=== PATIENT | male | born 2000 | race Two or more races ===

== ENCOUNTER → 2022-05-19 | Emergency (ER) | payer OTHER ==
[~2022-05-19] VITALS: Ht 165.1 cm; Wt 59.9 kg
[~2022-05-19] MED LIST: IV NS 0.9% 1,000 ML BAG IV ONE; IV NS 0.9% 1,000 ML IV ONE
--- NOTE | 2022-05-19 14:10 | NUR ---
PT ABLE TO BE AWAKENED, VERBALLY RESPONSIVE; PER PT, HE DOES NOT WANT TO HURT HIMSELF NOR END HIS LIFE.
--- NOTE | 2022-05-19 14:16 | NUR ---
PHLEB AT BEDSIDE FOR BLOOD DRAW
--- NOTE | 2022-05-19 14:17 | NUR ---
PT UNABLE TO PROVIDE URINE AT THIS TIME; URINAL PLACED AT BEDSIDE
--- NOTE | 2022-05-19 14:24 | NUR ---
IV PLACED AT BEDSIDE. Oswaldo HARDIN #[id number]. Addendum: 05/19/22 at 1431 by SUZETTE IV FLUIDS RUNNING
[2022-05-19 14:38] LABS: BASOPHILS % (AUTO) 0.4 % (0.0-2.0); EOSINOPHILS % (AUTO) 0.4 % (0.0-6.0); HEMATOCRIT 47 % (39-51); HEMOGLOBIN 15.5 g/dL (13.5-17.5); LYMPHOCYTES % (AUTO) 23.3 % (20.0-44.0); MEAN CORPUSCULAR HGB CONC 33 g/dl (31.0-36.0); MEAN CORPUSCULAR VOLUME 86 fL (80-96); MONOCYTES # (AUTO) 0.5 K/uL (0.1-1.30); MONOCYTES % (AUTO) 5.7 % (2.0-12.0); NEUTROPHILS % (AUTO) 70.2 % (43.0-81.0); PLATELET COUNT (AUTO) 364 K/uL (150-450); RED BLOOD CELL COUNT(AUTO) 5.48 MIL/uL (4.5-6.0); WHITE BLOOD COUNT (AUTO) 8.5 K/uL (4.3-11.0)
[2022-05-19 14:53] LABS: CALCIUM, SERUM 9.5 mg/dL (8.5-10.1); CARBON DIOXIDE 27 mmol/L (21-32); CHLORIDE 101 mmol/L (98-107); GLUCOSE 109 mg/dL (74-106); POTASSIUM 3.3 mmol/L (3.5-5.1); SODIUM SERUM 138 mmol/L (136-145); UREA NITROGEN, BLOOD 8 mg/dL (7-18)
[2022-05-19 14:58] LABS: ALANINE AMINOTRANSFERASE 41 U/L (12-78); ALBUMIN 4.7 g/dL (3.4-5.0); ALCOHOL, BLOOD < 3 mg/dL (0-0); ALKALINE PHOSPHATASE 114 U/L (46-116); ASPARTATE AMINOTRANSFERASE 23 U/L (15-37); BILIRUBIN,DIRECT 0.1 mg/dL (0.0-0.2); TOTAL PROTEIN, SERUM 8.4 g/dL (6.4-8.2)
[2022-05-19 15:11] LABS: ACETAMINOPHEN < 10 ug/ml (10-30)
--- NOTE | 2022-05-19 15:20 | NUR ---
URINE COLLECTED AND SENT TO LAB
--- NOTE | 2022-05-19 16:12 | NUR ---
LAB CONFIRMED THAT URINE SAMPLE HAS BEEN RECEIVED AND WILL BE PROCESSED ALREADY
[2022-05-19 16:15] LABS: BILIRUBIN,TOTAL 0.5 mg/dL (0.2-1.0)
[2022-05-19 16:16] LABS: BILIRUBIN,URINE NEGATIVE (NEGATIVE); COLOR,URINE YELLOW (YELLOW); LEUKOCYTE ESTERASE ,URINE NEGATIVE (NEGATIVE); NITRITE, URINE NEGATIVE (NEGATIVE); PROTEIN,URINE TRACE mg/dl (NEGATIVE); UGLUCOSE NEGATIVE (NEGATIVE); UROBILINOGEN,URINE 0.2 EU/dL (0.2)
[2022-05-19 16:59] LABS: BACTERIA,URINE Few /HPF (None Seen); RBC,URINE NONE SEEN /HPF (0-2); SQUAMOUS EPITHELIAL CELL,UR Few /HPF (None Seen); WBC,URINE NONE SEEN /HPF (0-3)
--- NOTE | 2022-05-19 18:50 | NUR ---
PT SIGNED DISCHARGE FORM. IV REMOVED. STILL AT BEDSIDE WITH MOTHER AWAITING THEIR TRANSPORT
[2022-05-19 19:22] VITALS: BP 122/76
== END | disposition home or self-care (01) ==
LOC: ER 13:59
DX: R40.4 Transient alteration of awareness (principal); F12.10 Cannabis abuse, uncomplicated; G47.00 Insomnia, unspecified
CPT/HCPCS: 99283; 96360; 96361; 85025; 80048; 80076; 81001; 36415; 80143; 80320; 80307; J7030 ×2; G0480